=== PATIENT | male | born 1955 | race Two or more races ===

== ENCOUNTER → 2016-04-16 | Day surgery (SDC) | payer OTHER ==
[2016-04-16] VITALS (9 sets, daily range): BP systolic 100–125; BP diastolic 61–86
[~2016-04-16] VITALS: Ht 172.7 cm; Wt 117.9 kg
[~2016-04-16] MED LIST: Alfentanil 2ml Inj ONE; Atropine Inj 1mg/10ml Syr IV PRN; Bupivacaine w/Epi 0.25% 30ml Vial INJ ONE; D5 1/2NS 1,000 ML IV SCH; Dexamethasone 4mg/ml vial ONE; DiphenhydrAMINE 50mg/ml Inj IVP PRN; Duramorph PF 10mg/10ml amp EPIDUR ONE; EPINEPHrine 1mg/1ml Amp ONE; EYE ALLERGY REL15 M1 OP; GABAPENTIN300 MG ORAL; HYDROCHLOROTHIA50 MG ORAL; Hydromorphone 0.5mg/0.5ml inj IVP PRN; Kenalog-40 1ml Vial IARTIC ONE; Ketorolac 30mg Inj IV PRN; Ketorolac 60mg Inj IV PRN; LISINOPRIL20 MG ORAL; LORazepam Inj 2mg/ml 1ml IV PRN; LR 1000ml 1,000 ML IVLG SCH; LR 1000ml ONE; Labetalol 5mg/ml 20ml vial IV PRN; Lidocaine 1% MPF 10mg/ml 5ml ONE; MINIPRESS5 MG PO; Meperidine 25mg/ml Inj IV PRN; Metoclopramide 10mg/2ml Inj IVP PRN; Midazolam 2mg/2ml Inj IVP PRN; Midazolam 2mg/2ml Inj ONE; Morphine Sulfate 2mg/ml Inj IVP PRN; Morphine Sulfate PF 10 ML ONE; NORCO 10-325 T1 EACH ORAL; NS Irrig 4000ml IRRIG ONE; Norco 5mg/325mg tab ORAL PRN; Norco 7.5mg/325mg tab ORAL PRN; OMEPRAZOLE20 M2 ORAL; Oxycodone/Acetaminophen 5-325 ORAL PRN; Propofol 10mg/ml 20ml IV ONE; Ropivacaine 5mg/ml Vial 20ml INJ ONE; SIMVASTATIN20 MG ORAL; TRAZODONE HCL150 MG ORAL; VENLAFAXINE HCL75 MG ORAL; ceFAZolin 1gm/50ml Premix 50 ML IV ONE; celeBREX 200mg Cap **SURGERY PATIENTS ONLY ORAL ONE; fentaNYL 100 mcg/2 mL IV PRN; oxyCONTIN 20mg tab ORAL ONE
--- NOTE | 2016-04-16 08:28 | Anethesia Preoperative Eval ---
Anesthesia Pre-op PMH/ROS General Date of Evaluation: Apr 16, 2016 Time of Evaluation: 09:18 Anesthesiologist: Valerie ASA Score: ASA 3 Mallampati Score Class I : Soft palate, uvula, fauces, pillars visible Class II: Soft palate, uvula, fauces visible Class III: Soft palate, base of uvula visible Class IV: Only hard plate visible Mallampati Classification: Class II Surgeon: Gui Diagnosis: R shoulder Pain Surgical Procedure: R Shoulder Arthroscopy, SLAP repair Anesthesia History: none Family History: no anesthesia problems Allergies: Coded Allergies: NAPROXEN (Verified Allergy, Severe, BREAKOUT IN HIVES, 11/19/15) CODEINE (Verified Adverse Reaction, Severe, PALPITATION,CHEST PAIN, 11/20/15 ) Per pt.had chest pain and palpitation from taking codeine years and years ago.But currently taking norco for pain at home. also dr. beckham was notified regarding this reaction, and still ok to go with oil pumper dilaudid as ordered Medications: see eMAR Past Medical History Cardiovascular: Reports: HTN, other - HL Pulmonary: Reports: CASSIE Gastrointestinal/Genitourinary: Reports: GERD Other: obesity - BMI 40 Anesthesia Pre-op Phys. Exam Physician Exam Last Vital Signs Date Time Temp Pulse Resp B/P Pulse Ox O2 Delivery O2 Flow Rate FiO2 04/16/16 08:05 97.9 68 20 125/86 95 Room Air Constitutional: NAD Neurologic: CN 2-12 intact Cardiovascular: RRR Respiratory: CTA Gastrointestinal: S/NT/ND Airway Exam Mallampati Score: Class II MO: limited ROM: limited Teeth: intact Anesthesia Pre-op A/P Risk Assessment & Plan Assessment: ASA 3 Plan: GA, R Supraclavicular Block. BIS Pre-Antibiotics Dru Grams Ancef IV Given Within 1 Hr of Incision: Yes Time Given: 09:31 Roberto Padilla MD Apr 16, 2016 08:28
--- NOTE | 2016-04-16 08:31 | 48 Hour Post Anesthesia Eval ---
Post Anesthesia Evaluation Procedure: R Shoulder Arthroscopy, SLAP repair Date of Evaluation: Apr 16, 2016 Time of Evaluation: 13:16 Blood Pressure Systolic: 127 0: 71 Pulse Rate: 78 Respiratory Rate: 18 Temperature (Fahrenheit): 98.2 O2 Sat by Pulse Oximetry: 96 Airway: patent Nausea: No Vomiting: No Pain Intensity: 1 Hydration Status: adequate Cardiopulmonary Status: Stable Mental Status/LOC: patient returned to baseline Follow-up Care/Observations: 0 Post-Anesthesia Complications: 0 Follow-up care needed: ready to discharge Roberto Padilla MD Apr 16, 2016 08:31
--- NOTE | 2016-04-16 08:31 | Immediate Post-Op Evaluation ---
Immediate Post-Op Evalulation Immediate Post-Op Evalulation Procedure: R Shoulder Arthroscopy, SLAP repair Date of Evaluation: Apr 16, 2016 Time of Evaluation: 11:02 IV Fluids: 800 LR Blood Products: 0 Estimated Blood Loss: 9 Urinary Output: 0 Blood Pressure Systolic: 103 Blood Pressure Diastolic: 68 Pulse Rate: 98 Respiratory Rate: 16 O2 Sat by Pulse Oximetry: 94 Temperature (Fahrenheit): 97.2 Pain Score (1-10): 1 Nausea: No Vomiting: No Complications 0 Patient Status: awake, reacts, patent, extubated, none Hydration Status: adequate Dru Grams Ancef IV Given Within 1 Hr of Incision: Yes Time Given: 09:31 Roberto Padilla MD Apr 16, 2016 08:31
--- NOTE | 2016-04-16 08:57 | Pre-Procedure Note/Attestation ---
Pre-Procedure Note/Attestation Complete Prior to Procedure Planned Procedure: right Procedure Narrative: shoulder arthroscopy, sad, possible rc repair, possible biceps tenodesis Indications for Procedure Pre-Operative Diagnosis: right shoulder internal deragement Attestation I attest that I discussed the nature of the procedure; its benefits; risks and complications; and alternatives (and the risks and benefits of such alternatives ), prior to the procedure, with the patient (or the patient's legal quality audit representative). I attest that, if there was a reasonable possibility of needing a blood transfusion, the patient (or the patient's legal quality audit representative) was given the [place] [employer] standardized written summary, pursuant to the Edmundo Andrea Blood Safety Act ([place] Health and Safety Code # 1645, as amended). I attest that I re-evaluated the patient just prior to the surgery and that there has been no change in the patient's H&P, except as documented below: CHARLEE LIN Apr 16, 2016 08:57
--- NOTE | 2016-04-16 08:58 | Operative Note - PDOC ---
Operative Note Operative Note Pre-op Diagnosis: right shoulder internal deragement Procedure: right shoulder arthroscopy, see op report Post-op Diagnosis: same as pre-op Operative Findings: consistent w/pre-op dx studies Anesthesia: general Specimen: none Complications: none Condition: stable Estimated Blood Loss: none Implant(s) used?: No CHARLEE LIN Apr 16, 2016 08:58
--- NOTE | 2016-04-16 21:57 | Operative Note - Dictated ---
DATE OF OPERATION: 04/16/2016 PREOPERATIVE DIAGNOSES: 1. Right shoulder superior labrum anterior and posterior tear. 2. Right shoulder impingement syndrome. 3. Bursitis. 4. Bursal-sided partial rotator cuff tear. POSTOPERATIVE DIAGNOSES: 1. Right shoulder superior labrum anterior and posterior tear. 2. Right shoulder impingement syndrome. 3. Bursitis. 4. Bursal-sided partial rotator cuff tear. PROCEDURES: 1. Right shoulder arthroscopy with extensive intra-articular debridement. 2. Suabcromial decompression bursectomy. 3. AC joint coplaining. SURGEON: Louis Messer M.D. ANESTHESIA: Interscalene with general. INDICATION FOR PROCEDURE: The patient is a pleasant gentleman, who has had progressive right shoulder pain. He had an MRI, which showed possible tear of the superior labrum. He had clinical evidence of impingement syndrome. Given that he had failed conservative treatment and he still has significant pain, he has elected to undergo right shoulder arthroscopy and possible biceps tenodesis versus repair/debridement with concurrent subacromial decompression with bursectomy. Risks, limitations, expectations, and complications related to procedure were discussed in detail. All questions addressed. DESCRIPTION OF PROCEDURE: An informed consent was obtained. The patient was brought to the operative room and placed under interscalene general anesthesia. The patient was then carefully placed in beach-chair position. Right shoulder was prepped and draped in a sterile manner. Ancef was administered. Time-out was performed. Posterior lateral stab incision was then made. Trocar was introduced into the glenohumeral joint. Anterior labrum appeared to be intact along with the subscapularis. There is some tearing along the superior labrum. The biceps tendon appeared to be intact. The trocar was placed through the rotator interval. This area of anterior labral tear was debrided down to stable tissue. Once that was done, the attachment of the labrum and the glenoid was probed and noted to be stable. The articular side of the rotator cuff appeared to be intact. At this point, the camera was repositioned in the subacromial space. A complete bursectomy was performed. The undersurface of the acromion was identified. He had a significant acromial spur. Acromioplasty was started from lateral and medial and completed from posterior to anterior. Once that was completed, the undersurface of the AC joint was identified and AC joint coplaning was also performed. Bursectomy was completed in the posterior aspect of the shoulder as well. Once this was completed, the bursal side of the rotator cuff was evaluated. There was a bursal-sided rotator cuff tear, which was debrided. Once this was completed, the instruments were removed. Portal sites were closed using 3-0 Monocryl sutures. Steri-Strips and a sterile dressing were applied. The patient was awoken and taken to recovery room with stable signs. ESTIMATED BLOOD LOSS: Minimal. COMPLICATIONS: None. SPECIMENS: None. IMPLANTS: None. Louis Messer M.D. DR: SILAS JOB#: [id number] CC:
== END | disposition home or self-care (01) ==
LOC: SUR 06:56
DX: S43.431A Superior glenoid labrum lesion of right shoulder, initial encounter (principal); M75.111 Incomplete rotator cuff tear or rupture of right shoulder, not specified as traumatic; M75.41 Impingement syndrome of right shoulder; X58.XXXA Exposure to other specified factors, initial encounter; Y92.89 Other specified places as the place of occurrence of the external cause; Y99.9 Unspecified external cause status; M75.51 Bursitis of right shoulder; E78.00 Pure hypercholesterolemia, unspecified; I10 Essential (primary) hypertension; F43.10 Post-traumatic stress disorder, unspecified; F31.9 Bipolar disorder, unspecified; G47.33 Obstructive sleep apnea (adult) (pediatric); K21.9 Gastro-esophageal reflux disease without esophagitis; E66.9 Obesity, unspecified; Z68.41 Body mass index [BMI] 40.0-44.9, adult; F17.290 Nicotine dependence, other tobacco product, uncomplicated; Z88.6 Allergy status to analgesic agent; Z88.5 Allergy status to narcotic agent; Z79.899 Other long term (current) drug therapy
CPT/HCPCS: 29823; 29826; J0171; J1100; J2250; J2274; J2405; J2704; J2795; J3301; J3490; J7120; 94003; 94150